=== PATIENT | female | born 1955 | race Caucasian/White ===

== ENCOUNTER 2017-07-29 12:34 | Observation (INO) | payer BC ==
[2017-07-29] MEDS ORDERED: AZITHROMYCIN 250 MG TABLET PO STA (12:45)
[2017-07-29] MEDS ORDERED: ACETAMINOPHEN 325 MG TABLET PO PRN (12:45)
[2017-07-29] MEDS ORDERED: HYDROcodone/ACETAMINOPHEN 1 EACH TABLET PO PRN (12:51)
[2017-07-29] MEDS ORDERED: MORPHINE SULFATE 2 MG/ML DISP.SYRIN IV PRN (12:54)
[2017-07-29] MEDS ORDERED: ONDANSETRON HCL/PF 2 MG/ML VIAL IV PRN (12:54)
[2017-07-29] MEDS ORDERED: ENOXAPARIN SODIUM 40 MG/0.4 ML SYRG SC SCH (13:00)
[2017-07-29 13:48] LABS: Hemoglobin 15.6 gm/dL (12.5-16.0); Mean Cell Volume 82.6 fl (78-100); Mean Corpuscular Hemoglobin 29.3 pg (27-31); Mean Corpuscular Hgb Conc 35.5 g/dl (32-36); Mean Platelet Volume 8.9 fl (6.0-9.5); Neutrophil # 5.7 K/mm3 (1.3-6.0); Neutrophil % 64.3 % (42-75.0); Platelet Count 237 K/mm3 (150-450); Red Blood Count 5.33 M/mm3 (4.2-5.4); Red Cell Distribution Width 12.7 % (11.5-14.0); White Blood Count 8.9 K/mm3 (4.0-10.5)
[2017-07-29] MEDS: INSULIN LISPRO 100 UNITS/ML VIAL SC SCH ×2 (14:00→17:19)
[2017-07-29] MEDS: NORMAL SALINE 1,000 ML IV PRN ×2 (14:01→22:07)
[2017-07-29] MEDS ORDERED: ALBUTEROL SULFATE 2.5 MG/0.5 ML VIAL.NEB IH PRN (14:28)
[2017-07-29] MEDS: HYDROcodone/ACETAMINOPHEN 1 EACH TABLET PO PRN ×3 (15:09→23:21)
[2017-07-29] MEDS ORDERED: ALPRAZolam 0.25 MG TABLET PO PRN (15:19)
--- NOTE | 2017-07-29 15:40 | PN ---
Progess Note - Interim Narrative: 07/29/17 15:29 Pt. seen and examined. Discussed case with Leonela Walton Patient describes body aches, F/C, [place], GALLARDO, neck stiffness and chest heaviness. No N/V/D or urinary sx or elevated Glucose. She states sx are similar to when she had influenza before, including the elevated BP. She didn't want to sleep last night as she was afraid she wouldn't wake up. Review of tests back so far: shows normal CBC and CXR. VS: show BP 187/110 PE: Looks ill and in distress. Conjunctiva, nares and OP show erythema. Neck is supple, no meningismus Lungs have joe fine rales, no wheezes or prolonged exp. phase. Heart is RRR without murmur Abd: soft, NT, NABS Ext: no LE edema or cords F/C/Body aches/LL rales: pneumonia (despite negative tests) or possible new influenza (testing pending). Will do fluids, she's already received 2 gm IV Rocephin and dose of zithromax, sputum and blood cultures pending. consider checking UA, but has already received Abx, so may not be helpful. Do nebs. Elevated BP: consider lisinopril 10mg po daily, follow for now. DM2: accuchecks and consistent carb diet. SSI. discharge pending: depends on results of tests and status of patient in the am. She could be here a couple midnights. 07/29/17 15:36 07/29/17 15:39
[2017-07-29] MEDS: LISINOPRIL 10 MG TABLET PO SCH (16:27)
[2017-07-29] MEDS ORDERED: PRAMIPEXOLE DI-HCL 0.5 MG TABLET PO SCH (21:00)
[2017-07-29] MEDS ORDERED: LORATADINE 10 MG TABLET PO SCH (21:00)
[2017-07-30] MEDS ORDERED: diphenhydrAMINE HCL 25 MG CAPSULE PO ONE (03:59)
[2017-07-30] MEDS: NORMAL SALINE 1,000 ML IV PRN (06:24)
[2017-07-30] MEDS: INSULIN LISPRO 100 UNITS/ML VIAL SC SCH (06:43)
--- NOTE | 2017-07-30 08:01 | DS ---
(1) Pneumonia Problem: Acute (2) Headache Problem: Acute Description of Stay: Patient was admitted for concern of acute bilateral pneumonia occurring post influenza infection. With negative CXR and normal CBC, concern was for possible additional influenza infection, but testing was negative. With the elevated SBP into the 180's there was a concern for possible ACS, but she stated that she had a stress test in the past that was fine, but her BP's and chest discomfort was improved with morphine the other day when she was in the ED. While here she did develop diarrhea, continued with her GALLARDO despite SBP's coming down into the 110's and 120's with norco and lisinopril 10mg x 1. she still felt like she could not get a breath, though her lung and heart exam revealed no significant findings. even the rales heard yesterday did not appear to be present. I suspect that all this is a viral pneumonitis and gastroenteritis, possibly an early pericarditis so will start her on some decadron at time of discharge as this has less effect on her blood sugars. elevated blood pressure: continue her on lisinopril but reduce the dose to 5mg, have her start ECASA 81mg daily. consider outpt stress test. DM: sugars remained in the 120-130's, no changes at this time GALLARDO: viral? see if oxycodone helps (morphine helped in ED) as well as the oxycodone. Procedures Performed: none Discharge Disposition: Home self care Disposition: Home self-care Condition: Fair Discharge Activity: Activity as tolerated Discharge Diet: Consistent carbs Referrals: Mau Pelletier MD [Primary Care Provider] - One Week Prescriptions (Any new or edited meds): Dexamethasone 6 mg PO DAILY #5 tablet Lisinopril 5 mg PO DAILY #30 tablet oxyCODONE HCL [Oxycodone] 5 mg PO Q6H PRN #30 tab PRN Reason: Severe Pain Complete Home Medications List: Complete Home Medication List: Duloxetine HCl [Cymbalta] 60 mg PO Q48H 01/23/13 Pramipexole Di-HCl [Mirapex] 0.5 mg PO HS 01/23/13 ALPRAZolam [Xanax] 0.25 mg PO BID PRN 07/29/17 Loratadine [Claritin] 10 mg PO HS 07/29/17 Acetaminophen [Tylenol] 650 mg PO Q4H PRN tablet 07/30/17 Dexamethasone 6 mg PO DAILY #5 tablet 07/30/17 Lisinopril 5 mg PO DAILY #30 tablet 07/30/17 oxyCODONE HCL [Oxycodone] 5 mg PO Q6H PRN #30 tab 07/30/17
[2017-07-30] MEDS: LISINOPRIL 10 MG TABLET PO SCH (08:07)
[2017-07-30] MEDS ORDERED: AZITHROMYCIN 250 MG TABLET PO SCH (09:00)
[2017-07-30 09:18] VITALS: BP 148/92
[2017-07-30] MEDS ORDERED: cefTRIAXone SODIUM 1,000 MG in DEXTROSE 5 % IN WATER 50 ML IV SCH ×2 (12:48)
[2017-07-30] MEDS ORDERED: DULoxetine HCL 30 MG CAPSULE.SA PO SCH (21:00)
== END 2017-07-30 09:32 | disposition home or self-care (01) ==
LOC: MS 12:34
PROVIDERS: ADMIT Nurse Practitioner Critical Care Medicine; ATTEND Family Medicine
DX: I10 Essential (primary) hypertension; J18.9 Pneumonia, unspecified organism; R51 Headache; E11.9 Type 2 diabetes mellitus without complications; Z68.29 Body mass index [BMI] 29.0-29.9, adult
CPT/HCPCS: 36415; 71045; 85025; 87040; 87400; 96361; 96365; 96372; 96374; 96375; G0378; G0379; J2405